=== PATIENT | male | born 1940 | race Caucasian/White ===

== ENCOUNTER 2018-02-16 18:11 | Emergency (ER) | payer OTHER ==
[~2018-02-16] VITALS: Ht 177.8 cm; Wt 117.0 kg
[~2018-02-16 18:11] MED LIST: ACCUCHECK; ACETAMINOPHEN325 M1 PO; ANASPAZ0.125 MG SUBLING; ASPIRIN EC81 M1 PO; CARDIO OMEGA B1 EACH PO; CARVEDILOL25 MG PO; COLACE 100 MG100 MG PO; CRESTOR10 MG PO; DOCUSATE SODIU100 MG PO; EUCERIN CREME57 GM TOP; FENOFIBRATE145 MG PO; FINASTERIDE5 MG PO; FLUCONAZOL400 MG/205 IV; GLUCOPHAGE1000 MG PO; GLUCOTROL10 MG PO; HYDROCODON-ACE1 EAC3 PO; HYTRIN10 MG PO; JANUVIA100 MG PO; LEVEMIR SUBQ; LOSARTAN-HCTZ1 EACH PO; MACROBID 100 M100 M1; MAG-OX 400 TAB400 M1 PO; MIRALAX PO; NAPROSYN500 MG PO; NORVASC 5 MG TAB5 MG PO; NOVOLOG100 UNIT/1 SUBQ; NYSTATIN15 GM TOP; PHENAZOPYRIDIN200 M2 PO; PROTONIX40 M2 PO; TUMS; VANCOMYCIN IV; VICODIN HP 10-1 EACH PO; VICODIN PO; VITAMIN D1000 UNI1 PO; VITCB500GO PO; [UNRECOGNIZED DRUG - REMARK] IV
[2018-02-16] MEDS ORDERED: LEVEMIR SUBQ (18:29)
[2018-02-16] MEDS ORDERED: CRESTOR10 MG PO (18:31)
[2018-02-16] MEDS ORDERED: NEURONTIN600 MG PO (18:31)
[2018-02-16] MEDS ORDERED: IBUPROFEN 800800 M1 PO (18:32)
[2018-02-16] MEDS ORDERED: ULORIC80 MG PO (18:32)
[2018-02-16] MEDS ORDERED: ALLOPURINOL 10100 M1 PO (18:33)
[2018-02-16] MEDS ORDERED: LISINOPRIL20 MG PO (18:33)
[2018-02-16 18:52] LABS: HEMATOCRIT 42.9 % (42.0-52.0); HEMOGLOBIN 14.4 gm/dL (14.0-18.0); MCH 32.4 pg (26.0-34.0); MCHC 33.6 g/dL (28.0-37.0); MCV 96.4 fL (80.0-100.0); MPV 7.9 fl. (7.2-11.1); NUCLEATED RBCS 0 /100WBC; PLATELET COUNT* 189 thou/uL (150-400); RBC 4.45 mil/uL (4.50-6.00); RDW-CV 13.5 % (10.5-14.5); WBC 14.6 thou/uL (4.0-11.0)
[2018-02-16 19:02] LABS: CALCIUM 8.5 mg/dL (8.5-10.1); CREATININE 1.3 mg/dL (0.6-1.3)
[2018-02-16 19:07] LABS: ALBUMIN 3.4 g/dL (3.4-5.0); TOTAL BILIRUBIN 0.4 mg/dL (<0.1-1.0); TOTAL PROTEIN 6.7 g/dL (6.4-8.2)
[2018-02-16 19:18] LABS: ABSOLUTE EOSINOPHILS 0.1 thou/uL (0.0-0.7); ABSOLUTE LYMPHOCYTES 1.3 thou/uL (0.8-5.3); ABSOLUTE NEUTROPHILS 12.1 thou/uL (1.6-8.1)
[2018-02-16 19:19] LABS: PLATELET ESTIMATE ADEQUATE
[2018-02-16] MEDS ORDERED: KEFLEX500 M1 PO (19:31)
[2018-02-16 19:48] VITALS: BP 168/78
[2018-02-16 20:04] LABS: ESR (SEDRATE) 24 mm/hr (0-20)
== END 2018-02-16 19:52 | disposition home or self-care (01) ==
LOC: M.ERS 18:11
PROVIDERS: Nurse Practitioner Family
DX: L95.8 Other vasculitis limited to the skin (principal); I10 Essential (primary) hypertension; E78.00 Pure hypercholesterolemia, unspecified; M19.90 Unspecified osteoarthritis, unspecified site; E11.40 Type 2 diabetes mellitus with diabetic neuropathy, unspecified; M10.9 Gout, unspecified; Z79.4 Long term (current) use of insulin

== ENCOUNTER 2020-06-29 11:16 | Emergency (ER) | payer OTHER ==
[~2020-06-29] VITALS: Ht 175.3 cm; Wt 111.1 kg
[~2020-06-29 11:16] MED LIST changes: +ALLOPURINOL 10100 M1 PO; +IBUPROFEN 800800 M1 PO; +KEFLEX500 M1 PO; +LISINOPRIL20 MG PO; +NEURONTIN600 MG PO; +ULORIC80 MG PO
[2020-06-29] MEDS ORDERED: CELECOXIB200 MG PO (11:30)
[2020-06-29] MEDS ORDERED: LISINOPRIL10 MG PO (11:30)
[2020-06-29] MEDS ORDERED: ACID REDUCER20 MG PO (11:31)
[2020-06-29 11:50] LABS: ABSOLUTE BASOPHILS 0.1 thou/uL (0.0-0.2); ABSOLUTE EOSINOPHILS 0.2 thou/uL (0.0-0.7); ABSOLUTE LYMPHOCYTES 1.5 thou/uL (0.8-5.3); ABSOLUTE MONOCYTES 0.9 thou/uL (0.0-1.2); BASOPHILS 0.8 %; MCHC 33.5 g/dL (28.0-37.0); PLATELET COUNT* 243 thou/uL (150-400); WBC 6.7 thou/uL (4.0-11.0)
[2020-06-29 11:55] LABS: ABSOLUTE NEUTROPHILS 4.1 thou/uL (1.6-8.1); CALCIUM 8.8 mg/dL (8.5-10.1); CREATININE 1.3 mg/dL (0.6-1.3); EOSINOPHILS 2.8 %; HEMATOCRIT 41.6 % (42.0-52.0); HEMOGLOBIN 13.9 gm/dL (14.0-18.0); MCH 31.5 pg (26.0-34.0); MCV 94.2 fL (80.0-100.0); MONOCYTES 13.7 %; MPV 7.1 fl. (7.2-11.1); NUCLEATED RBCS 0 /100WBC; POLYS 60.7 %; POTASSIUM 4.3 mmol/L (3.5-5.1); RBC 4.42 mil/uL (4.50-6.00); RDW-CV 13.6 % (10.5-14.5)
[2020-06-29 12:06] LABS: ALBUMIN 2.9 g/dL (3.4-5.0); TOTAL BILIRUBIN 0.4 mg/dL (<0.1-1.0); TOTAL PROTEIN 6.6 g/dL (6.4-8.2)
[2020-06-29] MEDS ORDERED: VENTOLIN HFA 1818 GM INH (14:25)
[2020-06-29 14:30] VITALS: BP 150/68
--- NOTE | 2020-06-30 14:37 | EKG ---
[place] [address] ELECTROCARDIOGRAM REPORT Name: CITLALLINelsonCLAUS Room: [facility]#: [id number] Admission: 06/29/20 Attend Phys: Discharge: 06/29/20 Date of : 40 Date of Service: 06/29/20 1129 Report #: [id number] THIS REPORT FOR: //name// [facility] ED Test Date: 2020-06-29 Test Time: 11:29:27 Pat Name: CLAUS PENDLETON Department: Room: Gender: Water Quality Specialist: SOURAV : 1940 Requested By: Ray Onofre Order Number: [id number] MD: Chato Mancia Measurements Intervals [place] Rate: 60 P: 59 MO: 209 QRS: -12 QRSD: 162 T: -20 QT: 460 QTc: 460 Interpretive Statements Sinus rhythm Right bundle branch block Baseline wander in lead(s) V3,V4,V5,V6 Compared to ECG 12/20/2011 06:20:50 No significant changes Electronically Signed On 06-30-2020 14:37:05 LIVING SUPERVISOR by Chato Mancia [email or web address] <ELECTRONICALLY SIGNED> By: Chato Mancia MD, FACC 06/30/20 1437 1129 1129 Chato Mancia MD, [facility] /EPI
== END 2020-06-29 14:35 | disposition left against medical advice (07) ==
LOC: M.ERS 11:16
PROVIDERS: Emergency Medicine Emergency Medical Services
DX: R06.02 Shortness of breath (principal); Z20.828 Contact with and (suspected) exposure to other viral communicable diseases; I10 Essential (primary) hypertension; E78.00 Pure hypercholesterolemia, unspecified; M19.90 Unspecified osteoarthritis, unspecified site; E11.40 Type 2 diabetes mellitus with diabetic neuropathy, unspecified; N40.0 Benign prostatic hyperplasia without lower urinary tract symptoms; Z79.4 Long term (current) use of insulin